=== PATIENT | male | born 2000 | race Caucasian/White ===

== ENCOUNTER 2022-05-18 15:20 | Emergency (ER) | payer OTHER ==
[~2022-05-18] VITALS: Ht 188 cm; Wt 79.5 kg
[2022-05-18] MEDS ORDERED: ACETAMINOPHEN/CODEINE 300-30 MG TABLET PO ONE (16:30)
[2022-05-18] MEDS ORDERED: IBUPROFEN 600 MG TABLET PO ONE (16:30)
[2022-05-18 21:21] VITALS: BP 123/70
[2022-05-18] MEDS ORDERED: IBUP-1554 PO (21:57)
[2022-05-18] MEDS ORDERED: ACET-2080 PO (21:57)
== END 2022-05-18 22:16 | disposition home or self-care (01) ==
LOC: EMS 15:28
DX: S63.502A Unspecified sprain of left wrist, initial encounter (principal); M79.672 Pain in left foot; R16.1 Splenomegaly, not elsewhere classified; V43.52XA Car driver injured in collision with other type car in traffic accident, initial encounter; Y93.I9 Activity, other involving external motion; Y92.411 Interstate highway as the place of occurrence of the external cause; Y99.8 Other external cause status
CPT/HCPCS: 70450; 71045; 72040; 72070; 72100; 74176; 99285